=== PATIENT | male | born 1980 | race Two or more races ===

== ENCOUNTER 2024-08-21 19:12 | Emergency (ER) | payer BC ==
[~2024-08-21] VITALS: Ht 177.8 cm; Wt 95.7 kg
[2024-08-21] MEDS ORDERED: DEXAMETHASONE SODIUM PHOSPHATE 4 MG/ML VIAL IM STA (22:25)
[2024-08-21] MEDS ORDERED: CEFTRIAXONE SODIUM 500 MG VIAL IM STA (22:26)
[2024-08-21] MEDS ORDERED: DEXAMETHASONE SODIUM PHOSPHATE 4 MG/ML VIAL ONE (22:31)
[2024-08-21] MEDS ORDERED: LIDOCAINE HCL 1% 10ML VIAL ONE (22:31)
[2024-08-21] MEDS ORDERED: AMOX-CLAV 875-1 EAC1 PO (22:32)
[2024-08-21] MEDS ORDERED: FLONASE16 GM NASAL (22:32)
== END 2024-08-21 22:48 | disposition home or self-care (01) ==
LOC: ER 19:13
DX: J32.9 Chronic sinusitis, unspecified (principal)